=== PATIENT | male | born 1950 | race Caucasian/White ===

== ENCOUNTER 2022-04-25 18:19 | Observation (INO) ==
[2022-04-25 20:08] LABS: Basophils # 0.1 K/mcL (0.0-0.2); Basophils % 1.1 %; Eosinophils # 0.2 K/mcL (0.0-0.6); Eosinophils % 3.6 %; Hematocrit 24.1 % (37.5-50.1); Hemoglobin 7.1 g/dL (12.9-16.9); Immature Granulocytes % 0.3 % (0-4); Lymphocytes # 1.7 K/mcL (0.6-4.6); Lymphocytes % 26.5 %; Mean Corpuscular HGB Conc 29.5 g/dL (31.6-35.5); Mean Corpuscular Hemoglobin 19.9 pg (28.0-33.3); Mean Corpuscular Volume 67.7 fL (83.0-100.0); Mean Platelet Volume 9.3 fL (9.4-12.4); Monocytes # 0.7 K/mcL (0.0-1.3); Monocytes % 11.3 %; Platelet Count 293 K/mcL (140-400); Red Blood Count 3.56 M/mcL (4.19-5.50); Red Cell Distribution Width 19.3 % (11.5-14.5); Segmented Neutrophils % 57.2 %; White Blood Count 6.4 K/mcL (4.3-11.1)
[2022-04-25 20:21] LABS: INR 1.1; Prothrombin Time 12.1 Seconds (9.4-12.1)
[2022-04-25 20:23] LABS: Activated Partial Thrombo Time 27.8 Seconds (26.0-36.0)
[2022-04-25 20:30] LABS: BUN/Creatinine Ratio 14 (6-26); Blood Urea Nitrogen 14 mg/dL (8-23); Calcium 8.5 mg/dL (8.6-10.3); Carbon Dioxide 26 mEq/L (23-29); Chloride 108 mEq/L (98-107); Glucose 115 mg/dL (70-105); Osmolality,Calculated 293 (280-300); Potassium 4.2 mEq/L (3.5-5.1); Sodium 141 mEq/L (136-145); Troponin I < 0.03 ng/mL (< 0.04)
[2022-04-25 20:43] LABS: Neutrophils # 3.7 K/mcL (1.6-8.9)
[2022-04-25 20:51] LABS: Acanthocytes 1+ (Not Present); Anisocytosis 1+ (Not Present); Hypochromasia Present (Not Present); Poikilocytosis 1+ (Not Present)
[2022-04-25 20:52] LABS: Platelet Estimate Normal (Normal); Polychromasia 1+ (Not Present)
[2022-04-25] MEDS ORDERED: Pantoprazole 40 MG VIAL IVP ONE (20:58)
[2022-04-25] MEDS ORDERED: Naloxone 0.4 MG/ML INJ IVP PRN (21:15)
[2022-04-25] MEDS ORDERED: Melatonin 3 MG TABLET PO PRN (21:15)
[2022-04-25] MEDS ORDERED: Ondansetron ODT 4 MG TAB.RAPDIS SL PRN (21:15)
[2022-04-25 21:55] LABS: Ferritin < 8 ng/mL (20-250); Iron < 10 mcg/dL (65-175); Transferrin 338 mg/dL (203-362)
[2022-04-25 22:45] LABS: Folate 15.1 ng/mL (3.0-16.0)
[2022-04-25] MEDS: *HR* OxyCODONE ER (12 HR) 10 MG TABLET PO SCH (23:39)
[2022-04-26 04:58] LABS: Albumin 3.6 g/dL (3.5-5.7); Albumin/Globulin Ratio 1.7 (1.1-2.2); Bilirubin,Direct 0.1 mg/dL (0.0-0.2); Bilirubin,Indirect 0.3 mg/dL (0.0-1.0); Bilirubin,Total 0.4 mg/dL (0.3-1.0); Globulin 2.1 g/dL (2.4-3.5); Total Protein 5.7 g/dL (6.4-8.9)
[2022-04-26 04:59] LABS: BUN/Creatinine Ratio 13 (6-26); Blood Urea Nitrogen 11 mg/dL (8-23); Calcium 8.2 mg/dL (8.6-10.3); Carbon Dioxide 24 mEq/L (23-29); Chloride 110 mEq/L (98-107); Glucose 102 mg/dL (70-105); Magnesium 1.9 mg/dL (1.6-2.6); Osmolality,Calculated 292 (280-300); Phosphorous 2.8 mg/dL (2.7-4.5); Potassium 3.7 mEq/L (3.5-5.1); Sodium 141 mEq/L (136-145)
[2022-04-26 05:15] LABS: Hematocrit 23.7 % (37.5-50.1); Mean Corpuscular HGB Conc 29.5 g/dL (31.6-35.5); Mean Corpuscular Hemoglobin 19.6 pg (28.0-33.3); Mean Corpuscular Volume 66.2 fL (83.0-100.0); Mean Platelet Volume 9.6 fL (9.4-12.4); Platelet Count 291 K/mcL (140-400); Red Blood Count 3.58 M/mcL (4.19-5.50); Red Cell Distribution Width 19.1 % (11.5-14.5); White Blood Count 8.7 K/mcL (4.3-11.1)
[2022-04-26] MEDS: *HR* OxyCODONE ER (12 HR) 10 MG TABLET PO SCH ×3 (06:39→22:46)
[2022-04-26] MEDS: Pantoprazole 40 MG VIAL IVP SCH ×2 (06:41→16:53)
[2022-04-26 08:09] LABS: Basophils # 0.1 K/mcL (0.0-0.2); Basophils % 0.7 %; Eosinophils # 0.3 K/mcL (0.0-0.6); Immature Granulocytes % 0.2 % (0-4); Lymphocytes # 1.8 K/mcL (0.6-4.6); Lymphocytes % 20.4 %; Monocytes # 0.7 K/mcL (0.0-1.3); Monocytes % 8.2 %; Neutrophils # 6.1 K/mcL (1.6-8.9); Segmented Neutrophils % 67.5 %
[2022-04-26] MEDS: Spironolactone 25 MG TABLET PO SCH (08:27)
[2022-04-26] MEDS: Nicotine 21 MG PATCH.TD24 TD SCH (08:27)
[2022-04-26] MEDS ORDERED: *HR* LORazepam 2 MG/ML VIAL IVP ONE (09:02)
[2022-04-26] MEDS ORDERED: Iron Sucrose Complex 400 MG in 0.9 % Sodium Chloride 250 ML IVPB ONE (15:52)
[2022-04-27 03:05] LABS: Immature Granulocytes % 0.3 % (0-4); Red Blood Count 3.75 M/mcL (4.19-5.50)
[2022-04-27 03:06] LABS: Basophils # 0.1 K/mcL (0.0-0.2); Eosinophils # 0.2 K/mcL (0.0-0.6); Eosinophils % 3.3 %; Hematocrit 25.1 % (37.5-50.1); Hemoglobin 7.3 g/dL (12.9-16.9); Lymphocytes # 1.4 K/mcL (0.6-4.6); Lymphocytes % 19.4 %; Mean Corpuscular HGB Conc 29.1 g/dL (31.6-35.5); Mean Corpuscular Hemoglobin 19.5 pg (28.0-33.3); Mean Corpuscular Volume 66.9 fL (83.0-100.0); Mean Platelet Volume 9.4 fL (9.4-12.4); Monocytes % 11.6 %; Neutrophils # 4.7 K/mcL (1.6-8.9); Platelet Count 288 K/mcL (140-400); Red Cell Distribution Width 19.1 % (11.5-14.5); Segmented Neutrophils % 64.4 %; White Blood Count 7.3 K/mcL (4.3-11.1)
[2022-04-27 03:20] LABS: Monocytes # 0.9 K/mcL (0.0-1.3)
[2022-04-27 03:39] LABS: Anisocytosis 1+ (Not Present); Hypochromasia Present (Not Present); Platelet Estimate Normal (Normal); Poikilocytosis 1+ (Not Present)
[2022-04-27] MEDS: *HR* OxyCODONE ER (12 HR) 10 MG TABLET PO SCH ×2 (06:12→14:27)
[2022-04-27] MEDS: Pantoprazole 40 MG VIAL IVP SCH (06:12)
[2022-04-27] MEDS ORDERED: Lidocaine -MPF 2% 5 ML VIAL ONE (10:12)
[2022-04-27] MEDS ORDERED: *HR* Propofol 200 MG/20 ML VIAL IVP ONE (10:12)
[2022-04-27] MEDS: Nicotine 21 MG PATCH.TD24 TD SCH (11:24)
[2022-04-27] MEDS: Spironolactone 25 MG TABLET PO SCH (11:24)
[2022-04-27] MEDS ORDERED: Iron Sucrose Complex 400 MG in 0.9 % Sodium Chloride 250 ML IVPB ONE (14:36)
[2022-04-27 15:09] LABS: Hemoglobin 7.8 g/dL (12.9-16.9)
[2022-04-27 15:19] VITALS: BP 153/77; PULSE 71; TEMP 98.6; O2SAT 93
== END 2022-04-27 17:10 | disposition home or self-care (01) ==
LOC: EMEROOARM 18:19 → 3BNU 18:19 → SUATTDRO 21:47 → 3BNU 22:53
PROVIDERS: ADMIT Internal Medicine; ATTEND Registered Nurse